=== PATIENT | female | born 1975 | race Caucasian/White ===

== ENCOUNTER 2022-04-22 23:57 | Inpatient (IN) | payer MEDICAID ==
[~2022-04-22] VITALS: Ht 144.8 cm; Wt 84.8 kg
[2022-04-23] MEDS ORDERED: SODIUM CHLORIDE 0.9% 1,000 ML IV ONE (01:30)
[2022-04-23 01:35] LABS: BASOPHILS % 0.1 % (0.0-2.0); EOSINOPHILS % 0.8 % (0.0-5.0); HEMATOCRIT. 37.4 % (36.0-48.0); HEMOGLOBIN. 12.2 g/dL (12.0-16.0); LYMPHOCYTES % 9.2 % (20.0-50.0); MEAN PLATELET VOLUME 9.1 fl (7.4-10.4); MONOCYTES % 7.1 % (2.0-8.0); NEUTROPHILS % 82.8 % (40.0-76.0); PLATELET 247 x1000/uL (130-400); RED BLOOD CELL COUNT 4.51 mill/uL (4.2-5.4); RED CELL DISTRIBUTION WIDTH 13.9 % (11.6-14.6)
[2022-04-23 01:37] LABS: CHLORIDE 108 mEq/L (98-107)
[2022-04-23 02:11] LABS: D-DIMER 5.48 mg/L FEU (<0.50); PARTIAL THROMBOPLASTIN TIME 25.2 sec (23.4-31.0); PROTHROMBIN TIME 10.9 sec (9.6-11.0)
[2022-04-23] MEDS ORDERED: IOHEXOL-300 100 ML BOTTLE ONE (02:49)
[2022-04-23] MEDS ORDERED: HEPARIN 25,000 UNITS PREMIX 250 ML IV ONE (03:00)
[2022-04-23] MEDS ORDERED: ALTEPLASE 100MG/VIAL IV NR (03:15)
[2022-04-23] MEDS ORDERED: ONDANSETRON HCL 4MG/2ML INJ IV PRN (04:30)
[2022-04-23] MEDS ORDERED: IPRATROPIUM/ALBUTEROL 0.5-3(2.5)MG/3ML NEB HHN PRN (04:30)
[2022-04-23] MEDS ORDERED: MAGNESIUM/ALUMINUM HYDROXIDE/SIMETHICONE 30ML UDC PO PRN (04:30)
[2022-04-23] MEDS ORDERED: CLONIDINE 0.1MG TABLET PO PRN (04:30)
[2022-04-23] MEDS ORDERED: DOCUSATE SODIUM 100MG CAPSULE PO PRN (04:30)
[2022-04-23] MEDS ORDERED: LORAZEPAM 2MG/ML CPJ IV PRN (04:30)
[2022-04-23] MEDS ORDERED: ACETAMINOPHEN 325MG TABLET PO PRN ×2 (04:30)
[2022-04-23] MEDS ORDERED: IPRATROPIUM BROMIDE (0.02%) 0.5MG/2.5ML NEB HHN PRN (05:00)
[2022-04-23] MEDS ORDERED: ALBUTEROL (0.083%) 2.5MG/3ML NEB HHN PRN (05:00)
[2022-04-23 05:12] LABS: CLARITY URINE CLEAR (CLEAR); COLOR URINE YELLOW (YELLOW); KETONES URINE NEGATIVE (NEGATIVE); LEUKOCYTE ESTERASE URINE NEGATIVE (NEGATIVE); NITRITE URINE NEGATIVE (NEGATIVE); OCCULT BLOOD URINE NEGATIVE (NEGATIVE); PH URINE 6.5 (4.5-8.0); PROTEIN URINE NEGATIVE (NEGATIVE); SPECIFIC GRAVITY URINE 1.018 (1.005-1.030); UROBILINOGEN URINE 0.2 E.U./dL (0.2-1.0)
[2022-04-23 05:44] LABS: HCG SCREEN NEGATIVE
[2022-04-23 05:51] LABS: PHOSPHORUS 3.6 mg/dL (2.5-4.9)
[2022-04-23 05:54] LABS: *AMPHETAMINES SCREEN URINE NEGATIVE (NEGATIVE); *BARBITURATES SCREEN URINE NEGATIVE (NEGATIVE); *BENZODIAZEPINES SCREEN URINE NEGATIVE (NEGATIVE); *COCAINE SCREEN URINE NEGATIVE (NEGATIVE); CANNABINOID URINE SCREEN NEGATIVE (NEGATIVE); METHADONE URINE SCREEN NEGATIVE (NEGATIVE); OPIATES URINE SCREEN NEGATIVE (NEGATIVE); PHENCYCLIDINE URINE SCREEN NEGATIVE (NEGATIVE)
[2022-04-23] MEDS: FAMOTIDINE 20MG TABLET PO SCH ×2 (09:00→20:59)
[2022-04-23 15:54] LABS: CREATINE KINASE MB FRACTION 6.5 ng/mL (0.5-3.6)
[2022-04-23 17:54] VITALS: BP 115/77
[2022-04-23 18:15] VITALS: BP 115/77
[2022-04-23 20:00] VITALS: BP 104/71
[2022-04-23 23:50] LABS: CREATINE KINASE MB FRACTION 3.9 ng/mL (0.5-3.6)
[2022-04-24] VITALS: BP 109/72
[2022-04-24 04:00] VITALS: BP 112/72
[2022-04-24 06:17] LABS: INR 1.2; PROTHROMBIN TIME 12.9 sec (9.6-11.0)
[2022-04-24 06:25] LABS: BASOPHILS % 0.2 % (0.0-2.0); EOSINOPHILS % 3.6 % (0.0-5.0); HEMATOCRIT. 36.1 % (36.0-48.0); HEMOGLOBIN. 11.7 g/dL (12.0-16.0); LYMPHOCYTES % 14.4 % (20.0-50.0); MEAN CORPUSCULAR HEMOGLOBIN 27.1 pg (28.0-32.0); MEAN CORPUSCULAR VOLUME 83.3 fL (81.0-99.0); MEAN PLATELET VOLUME 8.9 fl (7.4-10.4); MONOCYTES % 9.3 % (2.0-8.0); NEUTROPHILS % 72.5 % (40.0-76.0); PLATELET 190 x1000/uL (130-400); RED BLOOD CELL COUNT 4.34 mill/uL (4.2-5.4); RED CELL DISTRIBUTION WIDTH 14.1 % (11.6-14.6)
[2022-04-24] MEDS ORDERED: ENOXAPARIN 80MG/0.8ML SYR SUBCUT SCH ×2 (07:00→09:30)
[2022-04-24 07:53] LABS: CHLORIDE 108 mEq/L (98-107)
[2022-04-24 08:00] VITALS: BP 102/65
[2022-04-24 08:06] LABS: CREATINE KINASE 51 IU/L (26-192); CREATINE KINASE MB FRACTION 2.3 ng/mL (0.5-3.6)
[2022-04-24] MEDS: FAMOTIDINE 20MG TABLET PO SCH ×2 (09:06→21:00)
[2022-04-24 12:00] VITALS: BP 116/73
[2022-04-24] MEDS: PHENAZOPYRIDINE HCL 100MG TABLET PO SCH ×2 (14:01→18:04)
[2022-04-24 16:00] VITALS: BP 119/76
[2022-04-24 20:00] VITALS: BP 109/69
[2022-04-24] MEDS ORDERED: ATORVASTATIN CALCIUM 20MG TABLET PO SCH (21:00)
[2022-04-24] MEDS: APIXABAN 5 MG TABLET PO SCH (22:10)
[2022-04-25] VITALS: BP 125/62
[2022-04-25 04:00] VITALS: BP 106/70
[2022-04-25 07:10] LABS: HEMATOCRIT. 36.2 % (36.0-48.0); MEAN CORPUSCULAR HEMOGLOBIN 27.6 pg (28.0-32.0); MEAN CORPUSCULAR VOLUME 82.8 fL (81.0-99.0); PLATELET 192 x1000/uL (130-400); RED BLOOD CELL COUNT 4.37 mill/uL (4.2-5.4); RED CELL DISTRIBUTION WIDTH 14.1 % (11.6-14.6)
[2022-04-25 07:12] LABS: CHLORIDE 106 mEq/L (98-107)
[2022-04-25] MEDS: FAMOTIDINE 20MG TABLET PO SCH (10:16)
[2022-04-25] MEDS: PHENAZOPYRIDINE HCL 100MG TABLET PO SCH (10:16)
[2022-04-25] MEDS: APIXABAN 5 MG TABLET PO SCH (10:16)
[2022-04-25 11:31] VITALS: BP 116/68
[2022-04-25 14:16] LABS: PLATELET ESTIMATE NORMAL
[2022-04-26 04:11] LABS: PROTEIN C FUNCTIONAL 186 % (73-180)
[2022-05-01] MEDS ORDERED: APIXABAN 5 MG TABLET PO SCH (17:00)
== END 2022-04-25 12:36 | disposition home or self-care (01) | DRG 134 ==
LOC: ER 23:57 → 7EST 04-23 04:06 → EDBEDREQSVC 04-23 12:44
PROVIDERS: ADMIT Hospitalist; ATTEND Hospitalist
DX: I26.99 Other pulmonary embolism without acute cor pulmonale (principal); J96.01 Acute respiratory failure with hypoxia; R65.11 Systemic inflammatory response syndrome (SIRS) of non-infectious origin with acute organ dysfunction; E44.0 Moderate protein-calorie malnutrition; E78.5 Hyperlipidemia, unspecified; Z20.822 Contact with and (suspected) exposure to COVID-19; I82.411 Acute embolism and thrombosis of right femoral vein; I21.4 Non-ST elevation (NSTEMI) myocardial infarction; J45.909 Unspecified asthma, uncomplicated; R73.9 Hyperglycemia, unspecified; Z90.49 Acquired absence of other specified parts of digestive tract; Z68.41 Body mass index [BMI] 40.0-44.9, adult
CPT/HCPCS: 36415; 71045; 71275; 80048; 80053; 80061; 80305; 81003; 81403; 81407; 81479; 82550; 82553; 83036; 83605; 83735; 83880; 84100; 84484; 84703; 85025; 85300; 85303; 85306; 85379; 86850; 86900; 87426; 93005; 93306; 93970; 99291; J1650; J2997; J7030; Q9967

== ENCOUNTER 2022-04-28 11:01 | Emergency (ER) | payer MEDICAID ==
[~2022-04-28] VITALS: Ht 157.5 cm; Wt 89.0 kg
[2022-04-28 11:12] VITALS: BP 123/86
[2022-04-28 16:28] LABS: CLARITY URINE CLEAR (CLEAR); COLOR URINE YELLOW (YELLOW); KETONES URINE NEGATIVE (NEGATIVE); LEUKOCYTE ESTERASE URINE NEGATIVE (NEGATIVE); NITRITE URINE NEGATIVE (NEGATIVE); OCCULT BLOOD URINE 2+ (NEGATIVE); PH URINE 5.5 (4.5-8.0); PROTEIN URINE NEGATIVE (NEGATIVE); UROBILINOGEN URINE 0.2 E.U./dL (0.2-1.0)
[2022-04-28 17:39] LABS: CHLORIDE 108 mEq/L (98-107)
[2022-04-28 17:43] LABS: BASOPHILS % 0.2 % (0.0-2.0); EOSINOPHILS % 2.8 % (0.0-5.0); HEMATOCRIT. 35.3 % (36.0-48.0); HEMOGLOBIN. 11.5 g/dL (12.0-16.0); LYMPHOCYTES % 13.2 % (20.0-50.0); MEAN CORPUSCULAR HEMOGLOBIN 27.4 pg (28.0-32.0); MEAN CORPUSCULAR VOLUME 84.3 fL (81.0-99.0); MEAN PLATELET VOLUME 9.1 fl (7.4-10.4); MONOCYTES % 7.4 % (2.0-8.0); NEUTROPHILS % 76.4 % (40.0-76.0); PLATELET 286 x1000/uL (130-400); RED BLOOD CELL COUNT 4.18 mill/uL (4.2-5.4); RED CELL DISTRIBUTION WIDTH 14.1 % (11.6-14.6)
[2022-04-28 17:51] LABS: INR 1.1; PROTHROMBIN TIME 11.3 sec (9.6-11.0)
== END 2022-04-28 20:40 | disposition home or self-care (01) ==
LOC: ER 11:01
DX: R53.1 Weakness (principal); D64.9 Anemia, unspecified; Z90.49 Acquired absence of other specified parts of digestive tract
CPT/HCPCS: 36415; 71045; 80053; 81003; 81025; 84484; 85025; 93005; 99285

== ENCOUNTER 2022-05-17 22:12 | Emergency (ER) | payer MEDICAID ==
[~2022-05-17] VITALS: Ht 167.6 cm; Wt 83.0 kg
[2022-05-18 02:30] LABS: CHLORIDE 111 mEq/L (98-107)
[2022-05-18 02:32] LABS: HCG SCREEN NEGATIVE
[2022-05-18 02:40] LABS: BASOPHILS % 0.4 % (0.0-2.0); EOSINOPHILS % 1.4 % (0.0-5.0); HEMOGLOBIN. 11.5 g/dL (12.0-16.0); LYMPHOCYTES % 13.8 % (20.0-50.0); MEAN CORPUSCULAR HEMOGLOBIN 27.7 pg (28.0-32.0); MEAN CORPUSCULAR VOLUME 84.3 fL (81.0-99.0); MEAN PLATELET VOLUME 9.4 fl (7.4-10.4); MONOCYTES % 6.2 % (2.0-8.0); NEUTROPHILS % 78.2 % (40.0-76.0); PLATELET 239 x1000/uL (130-400); RED BLOOD CELL COUNT 4.16 mill/uL (4.2-5.4); RED CELL DISTRIBUTION WIDTH 14.4 % (11.6-14.6)
[2022-05-18 04:41] VITALS: BP 142/88
== END 2022-05-18 04:40 | disposition home or self-care (01) ==
LOC: ER 22:12
DX: M79.602 Pain in left arm (principal); E78.00 Pure hypercholesterolemia, unspecified; Z90.49 Acquired absence of other specified parts of digestive tract
CPT/HCPCS: 36415; 80053; 83880; 84484; 84703; 85025; 93005; 99284

== ENCOUNTER 2022-06-02 13:36 | Emergency (ER) | payer MEDICAID ==
[~2022-06-02] VITALS: Ht 167.6 cm; Wt 80.0 kg
[2022-06-02 16:14] LABS: BASOPHILS % 0.2 % (0.0-2.0); EOSINOPHILS % 0.9 % (0.0-5.0); HEMOGLOBIN. 12.2 g/dL (12.0-16.0); MEAN CORPUSCULAR HEMOGLOBIN 27.6 pg (28.0-32.0); MEAN PLATELET VOLUME 9.1 fl (7.4-10.4); MONOCYTES % 6.5 % (2.0-8.0); NEUTROPHILS % 80.4 % (40.0-76.0); PLATELET 317 x1000/uL (130-400); RED BLOOD CELL COUNT 4.41 mill/uL (4.2-5.4)
[2022-06-02 16:16] LABS: CHLORIDE 108 mEq/L (98-107); INR 1.1; PROTHROMBIN TIME 11.8 sec (9.6-11.0)
[2022-06-02 16:20] LABS: HCG SCREEN NEGATIVE
[2022-06-02 18:46] LABS: CLARITY URINE CLEAR (CLEAR); COLOR URINE YELLOW (YELLOW); KETONES URINE NEGATIVE (NEGATIVE); LEUKOCYTE ESTERASE URINE NEGATIVE (NEGATIVE); NITRITE URINE NEGATIVE (NEGATIVE); OCCULT BLOOD URINE NEGATIVE (NEGATIVE); PROTEIN URINE NEGATIVE (NEGATIVE); SPECIFIC GRAVITY URINE 1.007 (1.005-1.030); UROBILINOGEN URINE 0.2 E.U./dL (0.2-1.0)
[2022-06-02 21:00] VITALS: BP 118/74
[2022-06-02] MEDS ORDERED: OMEPRAZOLE 20MG CAPSULE EXTENDED RELEASE PO ONE (22:15)
[2022-06-02] MEDS ORDERED: MAGNESIUM/ALUMINUM HYDROXIDE/SIMETHICONE 30ML UDC PO ONE (22:15)
[2022-06-03] MEDS ORDERED: OMEP40CA20 PO ×2 (00:24→00:45)
== END 2022-06-03 00:54 | disposition home or self-care (01) ==
LOC: ER 13:36
DX: R10.13 Epigastric pain (principal); E78.00 Pure hypercholesterolemia, unspecified; Z90.49 Acquired absence of other specified parts of digestive tract
CPT/HCPCS: 36415; 76705; 80053; 81003; 83690; 84703; 85025; 85610; 99284; Z7610

== ENCOUNTER 2022-07-21 11:54 | Emergency (ER) | payer MEDICAID ==
[~2022-07-21] VITALS: Ht 149.9 cm; Wt 79.0 kg
[~2022-07-21 11:54] MED LIST: OMEP40CA20 PO
[2022-07-21 11:59] VITALS: BP 116/65
[2022-07-21] MEDS ORDERED: TOPUD MT (13:47)
== END 2022-07-21 14:13 | disposition home or self-care (01) ==
LOC: ER 11:57
DX: M79.651 Pain in right thigh (principal); E78.00 Pure hypercholesterolemia, unspecified; Z90.49 Acquired absence of other specified parts of digestive tract
CPT/HCPCS: 93971; 99284

== ENCOUNTER 2022-11-11 13:01 | Emergency (ER) | payer MEDICAID ==
[~2022-11-11] VITALS: Ht 152.4 cm; Wt 58.0 kg
[~2022-11-11 13:01] MED LIST changes: +APIX5TAB MT; +ASPI-1160 PO; +LIP40 PO; -OMEP40CA20 PO
[2022-11-11 13:07] VITALS: O2SAT 99
[2022-11-11 16:50] VITALS: BP 135/87; PULSE 68; RESP 20; TEMP 98
== END 2022-11-11 16:53 | disposition home or self-care (01) ==
LOC: ER 13:01
DX: M79.661 Pain in right lower leg (principal); Z90.49 Acquired absence of other specified parts of digestive tract; Z86.718 Personal history of other venous thrombosis and embolism
CPT/HCPCS: 93971; 99284